=== PATIENT | female | born 1975 | race Caucasian/White ===

== ENCOUNTER 2016-06-05 10:19 | Emergency (ER) ==
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
--- NOTE | 2016-06-05 11:19 | Diag Imaging Result Document ---
PROCEDURE NAME: XRAY HIP UNILATERAL LT - 06/05/2016 LEFT HIP, 2 VIEWS: COMPARISON: None. FINDINGS: There is contour abnormality of the left side of the symphysis pubis. 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 No dislocation. IMPRESSION: Abnormal contour of the left side of the symphysis pubis. Recommend a full pelvis x- ray or CT.
[2016-06-05 11:55] VITALS: BP 128/72
== END 2016-06-05 11:55 | disposition home or self-care (01) ==
LOC: ED 10:19
DX: S70.02XA Contusion of left hip, initial encounter (principal); M25.552 Pain in left hip; R10.30 Lower abdominal pain, unspecified; V89.2XXA Person injured in unspecified motor-vehicle accident, traffic, initial encounter; M79.1 Myalgia; F17.210 Nicotine dependence, cigarettes, uncomplicated; Z71.6 Tobacco abuse counseling; Z79.899 Other long term (current) drug therapy; Z79.1 Long term (current) use of non-steroidal anti-inflammatories (NSAID)
CPT/HCPCS: 81025; 99283